=== PATIENT | female | born 1950 | race African-American/Black ===

== ENCOUNTER 2021-06-26 14:15 | Inpatient (IN) | payer OTHER, MEDICAID ==
[~2021-06-26] VITALS: Ht 165.1 cm; Wt 71.0 kg
[2021-06-26] MEDS ORDERED: IPRATROPIUM BROMIDE (0.02%) 0.5MG/2.5ML NEB HHN STA (15:11)
[2021-06-26] MEDS ORDERED: METHYLPREDNISOLONE SOD SUCC 125 MG/2 ML VIAL IV STA (15:11)
[2021-06-26] MEDS: ALBUTEROL (0.083%) 2.5MG/3ML NEB HHN SCH ×2 (15:30→15:47)
[2021-06-26 15:43] LABS: BASOPHILS % 0.4 % (0.0-2.0); EOSINOPHILS % 2.4 % (0.0-5.0); HEMATOCRIT. 42.7 % (36.0-48.0); LYMPHOCYTES % 20.9 % (20.0-50.0); MEAN CORPUSCULAR HEMOGLOBIN 29.7 pg (28.0-32.0); MEAN CORPUSCULAR VOLUME 90.6 fL (81.0-99.0); MEAN PLATELET VOLUME 10.3 fl (7.4-10.4); MONOCYTES % 6.6 % (2.0-8.0); NEUTROPHILS % 69.7 % (40.0-76.0); PLATELET 230 x1000/uL (130-400); RED BLOOD CELL COUNT 4.72 mill/uL (4.2-5.4); RED CELL DISTRIBUTION WIDTH 14.4 % (11.6-14.6)
[2021-06-26 15:51] LABS: CHLORIDE 117 mEq/L (98-107)
[2021-06-26] MEDS ORDERED: CEFTRIAXONE 1 G PREMIX 50 ML IV ONE (17:15)
[2021-06-26] MEDS ORDERED: AZITHROMYCIN 500MG/250ML 250 ML IV ONE (17:15)
[2021-06-26] MEDS ORDERED: ASPIRIN 325MG TABLET PO ONE (18:30)
[2021-06-27] VITALS (9 sets, daily range): BP systolic 113–160; BP diastolic 54–93
[2021-06-27] MEDS: IPRATROPIUM/ALBUTEROL 0.5-3(2.5)MG/3ML NEB HHN PRN ×2 (02:55→17:17)
[2021-06-27] MEDS: LORAZEPAM 2MG/ML CPJ IV PRN (03:21)
[2021-06-27] MEDS ORDERED: MORPHINE SULFATE 2 MG/ML CPJ (NOT FOR IM USE) IV PRN (11:15)
[2021-06-27] MEDS ORDERED: NALOXONE HCL 0.4MG/ML VIAL IV PRN (11:30)
[2021-06-27] MEDS ORDERED: FUROSEMIDE 40MG/4ML VIAL IVP SCH (11:45)
[2021-06-27] MEDS ORDERED: DOCU-150 PO (12:36)
[2021-06-27] MEDS ORDERED: LISI20TA31 PO (12:36)
[2021-06-27] MEDS ORDERED: FURO40TA5 PO (12:36)
[2021-06-27] MEDS ORDERED: ATOR40TA70 PO (12:36)
[2021-06-27] MEDS ORDERED: METO25TA6 PO (12:36)
[2021-06-27] MEDS ORDERED: AMLO5TAB88 PO (12:36)
[2021-06-27] MEDS ORDERED: TEMA15CA PO (12:36)
[2021-06-27] MEDS ORDERED: ASPI-1406 PO (12:36)
[2021-06-27] MEDS ORDERED: CARV3.1242 PO (12:36)
[2021-06-27] MEDS ORDERED: IPRATROPIUM/ALBUTEROL 0.5-3(2.5)MG/3ML NEB HHN PRN (13:45)
[2021-06-27] MEDS ORDERED: ACETAMINOPHEN 325MG TABLET PO PRN (13:45)
[2021-06-27] MEDS ORDERED: HYDROCODONE/ACETAMINOPHEN 5/325MG TABLET PO PRN (13:45)
[2021-06-27] MEDS ORDERED: INFLUENZA VACCINE 05/PF 0.5 ML SYRINGE IM ONE (14:00)
[2021-06-27] MEDS: ENOXAPARIN 30MG/0.3ML SYR SUBCUT SCH (15:02)
[2021-06-27] MEDS ORDERED: BENZONATATE 100MG CAPSULE PO PRN ×2 (15:30→16:00)
[2021-06-27] MEDS ORDERED: GUAIFENESIN/CODEINE 100-10MG/5ML UDC PO PRN (15:30)
[2021-06-27] MEDS ORDERED: DEXTROSE 50% WATER 50ML SYRINGE IV PRN (16:45)
[2021-06-27] MEDS: BLOOD SUGAR DIAGNOSTIC STRIP TEST SCH ×2 (16:50→20:46)
[2021-06-27] MEDS: INSULIN LISPRO 100 UNITS/ML SUBCUT SCH ×2 (17:08→20:42)
[2021-06-27 17:09] LABS: METHADONE URINE SCREEN NEGATIVE (NEGATIVE); OPIATES URINE SCREEN NEGATIVE (NEGATIVE); PHENCYCLIDINE URINE SCREEN NEGATIVE (NEGATIVE)
[2021-06-27 17:10] LABS: *AMPHETAMINES SCREEN URINE NEGATIVE (NEGATIVE); *BARBITURATES SCREEN URINE NEGATIVE (NEGATIVE); *BENZODIAZEPINES SCREEN URINE NEGATIVE (NEGATIVE); *COCAINE SCREEN URINE PRESUMTIVE POSITIVE (NEGATIVE); CANNABINOID URINE SCREEN NEGATIVE (NEGATIVE)
[2021-06-27] MEDS: GUAIFENESIN/CODEINE 200-20MG/10ML UDC PO PRN (17:42)
[2021-06-27 18:44] LABS: BASOPHILS % 0.3 % (0.0-2.0); EOSINOPHILS % 0.2 % (0.0-5.0); HEMATOCRIT. 40.4 % (36.0-48.0); HEMOGLOBIN. 12.9 g/dL (12.0-16.0); LYMPHOCYTES % 13.4 % (20.0-50.0); MEAN CORPUSCULAR HEMOGLOBIN 28.7 pg (28.0-32.0); MEAN CORPUSCULAR VOLUME 90.2 fL (81.0-99.0); MEAN PLATELET VOLUME 10.8 fl (7.4-10.4); MONOCYTES % 7.9 % (2.0-8.0); NEUTROPHILS % 78.2 % (40.0-76.0); PLATELET 244 x1000/uL (130-400); RED BLOOD CELL COUNT 4.48 mill/uL (4.2-5.4); RED CELL DISTRIBUTION WIDTH 14.6 % (11.6-14.6)
[2021-06-27 18:59] LABS: CHLORIDE 110 mEq/L (98-107)
[2021-06-27 19:09] LABS: CREATINE KINASE 441 IU/L (26-192)
[2021-06-27 19:11] LABS: CREATINE KINASE MB FRACTION 5.6 ng/mL (0.5-3.6)
[2021-06-27] MEDS: FUROSEMIDE 40MG/4ML VIAL IVP SCH (20:37)
[2021-06-28] VITALS (19 sets, daily range): BP systolic 112–150; BP diastolic 26–97
[2021-06-28] MEDS: GUAIFENESIN/CODEINE 200-20MG/10ML UDC PO PRN ×3 (00:53→17:54)
[2021-06-28] MEDS: LORAZEPAM 2MG/ML CPJ IV PRN ×2 (00:54→12:59)
[2021-06-28] MEDS: BLOOD SUGAR DIAGNOSTIC STRIP TEST SCH (06:32)
[2021-06-28] MEDS: INSULIN LISPRO 100 UNITS/ML SUBCUT SCH (06:32)
[2021-06-28] MEDS ORDERED: CEFTRIAXONE 1 G PREMIX 50 ML IV SCH (07:15)
[2021-06-28 07:42] LABS: CREATINE KINASE MB FRACTION 4.2 ng/mL (0.5-3.6)
[2021-06-28 07:46] LABS: BASOPHILS % 0.8 % (0.0-2.0); EOSINOPHILS % 3.2 % (0.0-5.0); HEMATOCRIT. 38.3 % (36.0-48.0); HEMOGLOBIN. 12.8 g/dL (12.0-16.0); LYMPHOCYTES % 22.7 % (20.0-50.0); MEAN CORPUSCULAR VOLUME 90.2 fL (81.0-99.0); MEAN PLATELET VOLUME 10.3 fl (7.4-10.4); MONOCYTES % 6.8 % (2.0-8.0); NEUTROPHILS % 66.5 % (40.0-76.0); PLATELET 222 x1000/uL (130-400); RED BLOOD CELL COUNT 4.25 mill/uL (4.2-5.4); RED CELL DISTRIBUTION WIDTH 14.4 % (11.6-14.6)
[2021-06-28] MEDS ORDERED: AZITHROMYCIN 500 MG in DEXT 5% WATER 250 ML IV SCH (09:00)
[2021-06-28] MEDS: CEFTRIAXONE 1,000 MG in DEXTROSE 5% WATER 50 ML IV SCH (09:06)
[2021-06-28] MEDS: FUROSEMIDE 40MG/4ML VIAL IVP SCH ×2 (09:06→17:53)
[2021-06-28] MEDS: ASPIRIN 81MG TABLET PO SCH (09:43)
[2021-06-28] MEDS: DILTIAZEM HCL 30MG TABLET PO SCH ×2 (12:58→17:54)
[2021-06-28] MEDS: ENOXAPARIN 30MG/0.3ML SYR SUBCUT SCH (12:59)
[2021-06-28 14:11] LABS: PROTHROMBIN TIME 11.2 sec (9.6-11.0)
[2021-06-28] MEDS: METHYLPREDNISOLONE SOD SUCC 40 MG/ML VIAL IV SCH (15:09)
[2021-06-28 15:29] LABS: BG BASE EXCESS 0.1 mmol/L (-2.0-2.0); BG CARBOXYHEMOGLOBIN 0.4 % (0.5-1.5); BG DEOXYHEMOGLOBIN 1.6 % (0.0-5.0); BG FRACTION INSPIRED OXYGEN 28; BG HCO3 ACT 22.1 mmol/L (22.0-26.0); BG METHEMOGLOBIN 0.3 % (0.0-1.5); BG OXYGEN SATURATION 98.4 % (92.0-98.5); BG OXYHEMOGLOBIN 97.7 % (94.0-97.0); BG PCO2 28.7 mmHg (35.0-45.0); BG PH 7.504 (7.350-7.450); BG SAMPLE SITE RIGHT RADIAL; BG TOTAL HEMOGLOBIN 14.1 g/dL (12.0-18.0); BG VENT MODE NASAL CANNULA
[2021-06-28 17:11] LABS: CLARITY URINE CLEAR (CLEAR); COLOR URINE YELLOW (YELLOW); KETONES URINE NEGATIVE (NEGATIVE); LEUKOCYTE ESTERASE URINE TRACE (NEGATIVE); NITRITE URINE NEGATIVE (NEGATIVE); OCCULT BLOOD URINE NEGATIVE (NEGATIVE); PROTEIN URINE NEGATIVE (NEGATIVE); SPECIFIC GRAVITY URINE 1.009 (1.005-1.030); UROBILINOGEN URINE 0.2 E.U./dL (0.2-1.0)
[2021-06-28] MEDS: IPRATROPIUM/ALBUTEROL 0.5-3(2.5)MG/3ML NEB HHN SCH (21:21)
[2021-06-29] VITALS (17 sets, daily range): BP systolic 88–145; BP diastolic 52–94
[2021-06-29] MEDS: IPRATROPIUM/ALBUTEROL 0.5-3(2.5)MG/3ML NEB HHN SCH ×4 (02:17→21:01)
[2021-06-29] MEDS: DILTIAZEM HCL 30MG TABLET PO SCH ×4 (06:00→18:23)
[2021-06-29] MEDS: METHYLPREDNISOLONE SOD SUCC 40 MG/ML VIAL IV SCH (06:21)
[2021-06-29] MEDS: GUAIFENESIN/CODEINE 200-20MG/10ML UDC PO PRN ×3 (06:21→21:55)
[2021-06-29 07:38] LABS: BASOPHILS % 0.1 % (0.0-2.0); HEMATOCRIT. 40.1 % (36.0-48.0); HEMOGLOBIN. 13.3 g/dL (12.0-16.0); LYMPHOCYTES % 10.3 % (20.0-50.0); MEAN CORPUSCULAR HEMOGLOBIN 29.8 pg (28.0-32.0); MEAN CORPUSCULAR VOLUME 89.8 fL (81.0-99.0); MEAN PLATELET VOLUME 10.5 fl (7.4-10.4); MONOCYTES % 2.8 % (2.0-8.0); NEUTROPHILS % 86.8 % (40.0-76.0); PLATELET 277 x1000/uL (130-400); RED BLOOD CELL COUNT 4.46 mill/uL (4.2-5.4); RED CELL DISTRIBUTION WIDTH 14.3 % (11.6-14.6)
[2021-06-29] MEDS: ASPIRIN 81MG TABLET PO SCH (07:57)
[2021-06-29] MEDS: CEFTRIAXONE 1,000 MG in DEXTROSE 5% WATER 50 ML IV SCH (09:30)
[2021-06-29] MEDS: FUROSEMIDE 40MG/4ML VIAL IVP SCH (09:30)
[2021-06-29] MEDS: ENOXAPARIN 30MG/0.3ML SYR SUBCUT SCH (14:54)
[2021-06-29] MEDS ORDERED: LOSARTAN POTASSIUM 25 MG TABLET PO SCH (16:45)
[2021-06-29] MEDS: LORAZEPAM 2MG/ML CPJ IV PRN (16:52)
[2021-06-30] VITALS (8 sets, daily range): BP systolic 89–124; BP diastolic 54–83
[2021-06-30] MEDS: IPRATROPIUM/ALBUTEROL 0.5-3(2.5)MG/3ML NEB HHN SCH ×3 (02:02→22:18)
[2021-06-30] MEDS: LORAZEPAM 2MG/ML CPJ IV PRN (02:55)
[2021-06-30] MEDS: DILTIAZEM HCL 30MG TABLET PO SCH ×5 (06:00→23:10)
[2021-06-30 08:36] LABS: BASOPHILS % 0.1 % (0.0-2.0); HEMATOCRIT. 39.8 % (36.0-48.0); HEMOGLOBIN. 12.9 g/dL (12.0-16.0); LYMPHOCYTES % 16.8 % (20.0-50.0); MEAN CORPUSCULAR HEMOGLOBIN 29.2 pg (28.0-32.0); MEAN CORPUSCULAR VOLUME 90.2 fL (81.0-99.0); MEAN PLATELET VOLUME 10.2 fl (7.4-10.4); MONOCYTES % 6.5 % (2.0-8.0); NEUTROPHILS % 76.6 % (40.0-76.0); PLATELET 256 x1000/uL (130-400); RED BLOOD CELL COUNT 4.41 mill/uL (4.2-5.4); RED CELL DISTRIBUTION WIDTH 14.3 % (11.6-14.6)
[2021-06-30] MEDS: ASPIRIN 81MG TABLET PO SCH (09:00)
[2021-06-30] MEDS: FUROSEMIDE 40MG/4ML VIAL IVP SCH (09:00)
[2021-06-30] MEDS: CEFTRIAXONE 1,000 MG in DEXTROSE 5% WATER 50 ML IV SCH (09:00)
[2021-06-30] MEDS: GUAIFENESIN/CODEINE 200-20MG/10ML UDC PO PRN ×2 (10:40→21:55)
[2021-06-30] MEDS: SODIUM CHLORIDE 0.45% 1,000 ML IV SCH (13:55)
[2021-06-30] MEDS: ENOXAPARIN 30MG/0.3ML SYR SUBCUT SCH (14:08)
[2021-06-30 17:57] LABS: CREATINE KINASE 218 IU/L (26-192)
[2021-07-01] VITALS (12 sets, daily range): BP systolic 111–155; BP diastolic 54–95
[2021-07-01] MEDS: LORAZEPAM 2MG/ML CPJ IV PRN (02:22)
[2021-07-01] MEDS: IPRATROPIUM/ALBUTEROL 0.5-3(2.5)MG/3ML NEB HHN SCH ×4 (02:46→21:23)
[2021-07-01] MEDS: DILTIAZEM HCL 30MG TABLET PO SCH ×3 (06:08→18:10)
[2021-07-01] MEDS: SODIUM CHLORIDE 0.45% 1,000 ML IV SCH ×2 (06:09→22:20)
[2021-07-01 07:30] LABS: BASOPHILS % 0.8 % (0.0-2.0); EOSINOPHILS % 4.4 % (0.0-5.0); HEMATOCRIT. 42.8 % (36.0-48.0); HEMOGLOBIN. 13.8 g/dL (12.0-16.0); LYMPHOCYTES % 36.8 % (20.0-50.0); MEAN CORPUSCULAR HEMOGLOBIN 29.3 pg (28.0-32.0); MEAN PLATELET VOLUME 10.4 fl (7.4-10.4); MONOCYTES % 8.4 % (2.0-8.0); NEUTROPHILS % 49.6 % (40.0-76.0); PLATELET 269 x1000/uL (130-400); RED CELL DISTRIBUTION WIDTH 14.4 % (11.6-14.6)
[2021-07-01] MEDS: CEFTRIAXONE 1,000 MG in DEXTROSE 5% WATER 50 ML IV SCH (08:52)
[2021-07-01] MEDS: ASPIRIN 81MG TABLET PO SCH (08:52)
[2021-07-01] MEDS: GUAIFENESIN/CODEINE 200-20MG/10ML UDC PO PRN (08:59)
[2021-07-01] MEDS: ENOXAPARIN 30MG/0.3ML SYR SUBCUT SCH (15:07)
[2021-07-03 10:06] LABS: ANTI-NUCLEAR ANTIBODIES DIRECT Negative (Negative)
== END 2021-07-01 22:45 | disposition home or self-care (01) | DRG 917 ==
LOC: ER 14:15 → MICUSO 20:11 → 3WST 06-27 12:56
PROVIDERS: ADMIT Internal Medicine; ATTEND Internal Medicine
DX: T40.5X1A Poisoning by cocaine, accidental (unintentional), initial encounter (principal); I21.4 Non-ST elevation (NSTEMI) myocardial infarction; J96.01 Acute respiratory failure with hypoxia; I50.23 Acute on chronic systolic (congestive) heart failure; J68.0 Bronchitis and pneumonitis due to chemicals, gases, fumes and vapors; I13.0 Hypertensive heart and chronic kidney disease with heart failure and stage 1 through stage 4 chronic kidney disease, or unspecified chronic kidney disease; N17.9 Acute kidney failure, unspecified; I47.2 Ventricular tachycardia; I42.9 Cardiomyopathy, unspecified; Z60.2 Problems related to living alone; I95.9 Hypotension, unspecified; R26.89 Other abnormalities of gait and mobility; J06.9 Acute upper respiratory infection, unspecified; Z20.822 Contact with and (suspected) exposure to COVID-19; D72.829 Elevated white blood cell count, unspecified; F14.10 Cocaine abuse, uncomplicated; F17.210 Nicotine dependence, cigarettes, uncomplicated; I34.0 Nonrheumatic mitral (valve) insufficiency; N18.9 Chronic kidney disease, unspecified; N20.0 Calculus of kidney; Z79.899 Other long term (current) drug therapy; Z91.14 Patient's other noncompliance with medication regimen; Z71.51 Drug abuse counseling and surveillance of drug abuser
CPT/HCPCS: 36415; 36600; 71045; 76770; 78580; 80048; 80053; 80061; 80305; 81003; 82375; 82550; 82553; 82805; 82962; 83036; 83605; 83735; 83880; 84484; 85025; 86038; 86160; 87426; 93005; 93306; 93970; 94618; 94640; 94644; 97162; 99285; J0456; J0696; J1650; J1815; J1940; J2060; J2920; J2930; J7040; J7060